=== PATIENT | male | born 1960 | race Caucasian/White ===

== ENCOUNTER → 2021-01-20 | Outpatient (CLI) | payer MEDICARE, OTHER ==
[~2021-01-20] MED LIST: ALEVE220 M1 PO; ASPIR-LOW81 MG PO; AUGMENTIN 875-1 EACH PO; BENTYL 10MG CAP10 MG PO; BETAPACE80 MG PO; CURCUMIN250 GM MC; ECOTRIN81 MG PO; GLUCOPHAGE1000 MG PO; GLUCOTROL 10 MG10 MG PO; IBUPROFEN400 MG PO; ISORDIL TAB 3030 MG PO; LIPITOR TAB 2020 MG PO; LISINOPRIL10 MG PO; NEURONTIN 300300 MG PO; POTASSIUM99 MG PO; PROTONIX40 MG PO
== END ==
LOC: EMI 14:56
DX: M75.101 Unspecified rotator cuff tear or rupture of right shoulder, not specified as traumatic (principal); M19.011 Primary osteoarthritis, right shoulder
CPT/HCPCS: 73221